=== PATIENT | female | born 1950 | race African-American/Black ===

== ENCOUNTER 2022-10-17 07:21 | Observation (INO) | payer OTHER ==
[~2022-10-17] VITALS: Ht 165.1 cm; Wt 46.3 kg
[~2022-10-17 07:21] MED LIST: ALBUTEROL0.63 MG/3 INH; AMLODIPINE BESY10 MG PO; CRESTOR10 MG PO; CYMBALTA30 MG PO; ESTRADIOL1 MG VG; FLONASE ALLERG9.9 ML INH; JARDIANCE25 MG PO; NEURONTIN100 MG PO; SYMBICORT 16010.2 GM INH; ULTRAM 50MG50 MG PO
[2022-10-17] MEDS ORDERED: CEFAZOLIN SODIUM 2 GM ONE (07:55)
[2022-10-17] MEDS ORDERED: LACTATED RINGER'S 1,000 ML ONE (07:55)
[2022-10-17] MEDS ORDERED: GABAPENTIN 300 MG CAP ONE (07:55)
[2022-10-17] MEDS ORDERED: DEXAMETHASONE SOD PHOS 10 MG/1 ML VIAL ONE ×2 (07:55→13:38)
[2022-10-17] MEDS ORDERED: CELECOXIB 200 MG CAP ONE (07:55)
[2022-10-17] MEDS ORDERED: SODIUM CHLORIDE 0.9% 500ML 500 ML ONE (09:50)
[2022-10-17] MEDS ORDERED: VANCOMYCIN 500 MG ONE (10:30)
[2022-10-17] MEDS ORDERED: TRANEXAMIC ACID 1,000 MG/10 ML ML ONE (10:30)
[2022-10-17] MEDS ORDERED: ZOLPIDEM TARTRATE 5 MG TAB PO PRN (11:45)
[2022-10-17] MEDS ORDERED: DOCUSATE SODIUM 100 MG CAP PO PRN (11:45)
[2022-10-17] MEDS ORDERED: HYDROCODONE/APAP 5MG-325MG TAB PO PRN (11:45)
[2022-10-17] MEDS ORDERED: HYDROCODONE/APAP 7.5MG-325MG 1 EA TAB PO PRN (11:45)
[2022-10-17] MEDS ORDERED: ACETAMINOPHEN 650 MG SUPP PR PRN (11:45)
[2022-10-17] MEDS ORDERED: SODIUM CHLORIDE 0.9% 1000ML 1,000 ML IV SCH (11:45)
[2022-10-17] MEDS ORDERED: ONDANSETRON HCL INJ 2MG/ML 2ML 2 MG/ML VIAL IV PRN (11:45)
[2022-10-17] MEDS ORDERED: DIPHENHYDRAMINE HCL INJ 50 MG/ML VIAL IV PRN (11:45)
[2022-10-17] MEDS ORDERED: SUGAMMADEX SODIUM 200 MG/2 ML VIAL IV ONE (11:47)
[2022-10-17] MEDS ORDERED: MIDAZOLAM HCL 2 MG/2 ML VIAL ONE (12:16)
[2022-10-17] MEDS ORDERED: KETAMINE HCL INJ 50 MG/ML 10 ML VIAL ONE (12:16)
[2022-10-17] MEDS ORDERED: FENTANYL CITRATE/PF 100MCG/2 ML INJ ONE ×2 (12:16→12:29)
[2022-10-17] MEDS ORDERED: ESMOLOL HCL 100MG/10ML 10 MG/ML VIAL ONE (12:38)
[2022-10-17] MEDS ORDERED: ROPIVACAINE 0.5% 5 MG/ML 30 ML SDV ONE (13:38)
[2022-10-17 14:50] VITALS: BP 125/79
[2022-10-17 15:00] VITALS: BP 117/74
[2022-10-17 15:56] VITALS: BP 114/60
[2022-10-17] MEDS ORDERED: CELECOXIB 200 MG CAP PO SCH (17:00)
[2022-10-17] MEDS ORDERED: ASPIRIN 325 MG TAB PO SCH (17:00)
[2022-10-18] MEDS ORDERED: ACETAMINOPHEN 1000 MG/100 ML IV PRN (11:45)
== END 2022-10-17 19:27 | disposition home health service (06) ==
LOC: OR 07:21 → PACU V 11:37 → MED/SURG 14:50
PROVIDERS: ADMIT Specialist; ATTEND Specialist
DX: M16.0 Bilateral primary osteoarthritis of hip (principal); J44.9 Chronic obstructive pulmonary disease, unspecified; E11.9 Type 2 diabetes mellitus without complications
CPT/HCPCS: 0223U; 36415; 71046; 72170; 82948; 86850; 86900; 86920; C1713; C1776; G0378; J0690; J1100; J2250; J2795; J3370; J7030; J7040